=== PATIENT | female | born 1975 | race American Indian/Alaskan Native ===

== ENCOUNTER 2016-04-29 13:03 | Outpatient (CLI) | payer MEDICARE | END 2016-04-29 13:04 | disposition home or self-care (01) | LOC: CARD 13:03 | DX: H43.12 Vitreous hemorrhage, left eye (principal) | CPT/HCPCS: 93005; 93010 ==

== ENCOUNTER 2017-07-30 09:43 | Inpatient (IN) | payer MEDICARE ==
[2017-07-30] MEDS ORDERED: ASPIRIN PO ONE (10:11)
[2017-07-30] MEDS ORDERED: MORPHINE IV ONE (10:32)
--- NOTE | 2017-07-30 10:33 | Emergency Department Report ---
ED Chest Pain HPI - General Chief Complaint: Chest Pain Stated Complaint: CHEST PAIN Time Seen by Provider: 07/30/17 10:10 Source: patient, EMS Mode of arrival: Stretcher Limitations: No Limitations - History of Present Illness Initial Comments: Is a 42-year-old female presents to emergency room with complaints of chest pain 1 hour. Patient states chest pain is a center of her chest radiating to the left part of her chest. Patient states pain is a 3 out of 10. Patient states unchanged with rest and worse with exertion. Patient states she was given nitroglycerin in route by EMS. Patient describes the pain as a pressure and dull pain. Patient states she was having her dialysis done at approximately 2.5 hours into her dialysis treatment she developed chest pain. Patient states she missed dialysis on Wednesday. Patient denies shortness of breath. Patient denies fever and chills. Patient denies recent URI symptoms. Patient denies leg pain. He denies nausea and vomiting and diaphoresis. Patient has multiple comorbidities MD Complaint: chest pain -: Sudden Onset: during rest Pain Location: substernal, left chest Pain Radiation: other (pain radiates from the center of her chest to her left chest) Severity scale (0 -10): 3 Quality: tightness, aching, pressure Consistency: constant Improves With: nothing Worsens With: exertion, movement re: denies: nausea, vomting, diaphoresis, dyspnea, sense of impending doom Other Symptoms: denies: cough, fever, syncope, rash, acid taste in mouth, leg swelling, palpitations, burping Treatments Prior to Arrival: nitroglycerin Aspirin use within the Past 7 Days: (0) No - Related Data On Oral Contraceptives: No Home Medications Medication Instructions Recorded Confirmed Last Taken Clonidine HCl [Catapres] 0.3 mg PO TID 11/28/14 07/30/17 07/28/16 Carvedilol [Coreg] 25 mg PO BID 02/13/15 07/30/17 07/28/16 Furosemide [Lasix TAB] 80 mg PO BID 02/13/15 07/30/17 07/28/16 NIFEdipine XL [Procardia Xl] 60 mg PO Q12HR 02/13/15 07/30/17 07/28/16 B Complex 11/Folic/C/Biot/Zinc 1 each PO DAILY 07/29/16 07/30/17 07/28/16 [Dialyvite with Zinc Tablet] Insulin Detemir [Levemir Flextouch] 20 unit SQ DAILY 07/29/16 07/30/17 07/28/16 Omeprazole Magnesium [PriLOSEC Otc] 20 mg PO QDAY 07/29/16 07/30/17 07/28/16 Calcium Acetate [Phoslo] 2,001 mg PO TID 07/30/17 07/30/17 Unknown Ergocalciferol [Vitamin D2] 1 cap PO QWEEK 07/30/17 07/30/17 Unknown Ferric Citrate (Nf) [Auryxia (Nf)] 210 mg PO AC 07/30/17 07/30/17 Unknown Gabapentin [Neurontin] 100 mg PO PRN 07/30/17 07/30/17 Unknown Zolpidem [Ambien] 5 mg PO QHS PRN 07/30/17 07/30/17 Unknown Allergies Allergy/AdvReac Type Severity Reaction Status Date / Time lisinopril Allergy Swelling Verified 11/09/15 08:48 heparin AdvReac EYE Verified 07/30/17 15:24 FOGGING/ EYE BLEEDING Heart Score - HEART Score History: Slightly suspicious EKG: Normal Age: < 45 Risk factors: > 3 risk factors or hx of atherosclerotic disease Troponin: > 3x normal limit HEART Score: 4 ED Review of Systems ROS: Stated complaint: CHEST PAIN Other details as noted in HPI Constitutional: denies: chills, fever Eyes: denies: eye pain, eye discharge, vision change ENT: denies: ear pain, throat pain Respiratory: denies: cough, shortness of breath, wheezing Cardiovascular: chest pain. denies: palpitations Endocrine: no symptoms reported Gastrointestinal: denies: abdominal pain, nausea, diarrhea Genitourinary: denies: urgency, dysuria, discharge Musculoskeletal: denies: back pain, joint swelling, arthralgia Skin: denies: rash, lesions Neurological: denies: headache, weakness, paresthesias Psychiatric: denies: anxiety, depression Hematological/Lymphatic: denies: easy bleeding, easy bruising ED Past Medical Hx - Past Medical History Previous Medical History?: Yes Hx Hypertension: Yes Hx CVA: Yes (TIA) Hx Heart Attack/AMI: No Hx Congestive Heart Failure: Yes ([facility] DIASTOLIC HEART FAILURE) Hx Diabetes: Yes (IDDM 2014) Hx Deep Vein Thrombosis: No Hx Pulmonary Embolism: No Hx GERD: No Hx Liver Disease: No Hx Renal Disease: Yes (MWF dialysis) Hx Sickle Cell Disease: No Hx Arthritis: No Hx Headaches / Migraines: No Hx Seizures: No Hx Kidney Stones: No Hx Asthma: No Hx COPD: No Hx Tuberculosis: No Hx Dementia: No Hx HIV: No - Surgical History Past Surgical History?: Yes Hx Coronary Stent: No Hx Open Heart Surgery: No Hx Pacemaker: No Hx Internal Defibrillator: No Hx Cholecystectomy: No Hx Appendectomy: No Hx Breast Surgery: No Additional Surgical History: Left subclavian hemodialysis access. Fistula placement right arm - Family History Family history: hypertension - Social History Smoking Status: Never Smoker Substance Use Type: None - Medications Home Medications: Home Medications Medication Instructions Recorded Confirmed Last Taken Type Clonidine HCl [Catapres] 0.3 mg PO TID 11/28/14 07/30/17 07/28/16 History Carvedilol [Coreg] 25 mg PO BID 02/13/15 07/30/17 07/28/16 History Furosemide [Lasix TAB] 80 mg PO BID 02/13/15 07/30/17 07/28/16 History NIFEdipine XL [Procardia Xl] 60 mg PO Q12HR 02/13/15 07/30/17 07/28/16 History B Complex 11/Folic/C/Biot/Zinc 1 each PO DAILY 07/29/16 07/30/17 07/28/16 History [Dialyvite with Zinc Tablet] Insulin Detemir [Levemir Flextouch] 20 unit SQ DAILY 07/29/16 07/30/17 07/28/16 History Omeprazole Magnesium [PriLOSEC Otc] 20 mg PO QDAY 07/29/16 07/30/17 07/28/16 History Calcium Acetate [Phoslo] 2,001 mg PO TID 07/30/17 07/30/17 Unknown History Ergocalciferol [Vitamin D2] 1 cap PO QWEEK 07/30/17 07/30/17 Unknown History Ferric Citrate (Nf) [Auryxia (Nf)] 210 mg PO AC 07/30/17 07/30/17 Unknown History Gabapentin [Neurontin] 100 mg PO PRN 07/30/17 07/30/17 Unknown History Zolpidem [Ambien] 5 mg PO QHS PRN 07/30/17 07/30/17 Unknown History ED Physical Exam - General Limitations: No Limitations General appearance: alert, in no apparent distress - Head Head exam: Present: atraumatic, normocephalic - Eye Eye exam: Present: normal appearance - ENT ENT exam: Present: mucous membranes moist - Neck Neck exam: Present: normal inspection - Respiratory Respiratory exam: Present: normal lung sounds bilaterally. Absent: respiratory distress - Cardiovascular Cardiovascular Exam: Present: regular rate, normal rhythm. Absent: systolic murmur, diastolic murmur, rubs, gallop - GI/Abdominal GI/Abdominal exam: Present: soft, normal bowel sounds - Extremities Exam Extremities exam: Present: normal inspection - Back Exam Back exam: Present: normal inspection - Neurological Exam Neurological exam: Present: alert, oriented X3 - Psychiatric Psychiatric exam: Present: normal affect, normal mood - Skin Skin exam: Present: warm, dry, intact, normal color. Absent: rash ED Course Vital Signs 07/30/17 07/30/17 07/30/17 09:51 10:08 10:13 Temperature 99.1 F 99.1 F Pulse Rate 77 76 77 Respiratory 19 16 15 Rate Blood Pressure 188/93 188/93 Blood Pressure 188/93 [Left] O2 Sat by Pulse 99 98 99 Oximetry 07/30/17 07/30/17 07/30/17 10:16 10:30 10:46 Temperature Pulse Rate 77 75 75 Respiratory 15 18 15 Rate Blood Pressure 188/93 188/93 188/93 Blood Pressure [Left] O2 Sat by Pulse 99 98 99 Oximetry 07/30/17 07/30/17 07/30/17 10:48 11:00 11:16 Temperature Pulse Rate 74 77 Respiratory 15 17 18 Rate Blood Pressure 197/88 197/88 Blood Pressure [Left] O2 Sat by Pulse 96 99 Oximetry 07/30/17 07/30/17 07/30/17 11:18 11:30 11:46 Temperature Pulse Rate 79 76 Respiratory 15 14 20 Rate Blood Pressure 197/88 197/88 Blood Pressure [Left] O2 Sat by Pulse 99 99 Oximetry 07/30/17 07/30/17 07/30/17 12:00 12:16 12:30 Temperature Pulse Rate 74 75 75 Respiratory 15 20 14 Rate Blood Pressure 196/95 196/95 196/95 Blood Pressure [Left] O2 Sat by Pulse 96 97 97 Oximetry 07/30/17 07/30/17 12:46 13:00 Temperature Pulse Rate 75 78 Respiratory 18 12 Rate Blood Pressure 196/95 197/96 Blood Pressure [Left] O2 Sat by Pulse 97 98 Oximetry - Reevaluation(s) Reevaluation #1: Discussed wound care with patient. Patient to be admitted to hospital and patient agrees. Dr. Strauss consulted for admission. Dr. Strauss to assume care of the patient. 07/30/17 11:29 YOAN score - Yoan Score Age > 65: (0) No Aspirin use within the Past 7 Days: (0) No 3 or more CAD Risk Factors: (1) Yes 2 or more Angina events in past 24 hrs: (1) Yes Known CAD with more than 50% Stenosis: (0) No Elevated Cardiac Markers: (1) Yes ST Deviation Greater than 0.5mm: (0) No YOAN Score: 3 ED Medical Decision Making - Lab Data Result diagrams: 07/30/17 12:15 07/30/17 12:15 - EKG Data -: EKG Interpreted by Ga EKG shows normal: sinus rhythm, axis, intervals, QRS complexes, ST-T waves Rate: normal - EKG Data Interpretation: LV[facility] - Medical Decision Making Patient is a 42-year-old female presents emergency room with chest pain. Patient found to have elevated troponins. Patient admitted to the hospitalist service for further evaluation and treatment. Hypertension discussed with hospitalist. hospitalists to assume care at time of consultation - Differential Diagnosis chest pain. ACS. Electrolyte imbalance. ckd Critical Care Time: Yes Critical care attestation.: If time is entered above; I have spent that time in minutes in the direct care of this critically ill patient, excluding procedure time. Critical Care Time: 35 minutes for critical care time ED Disposition Clinical Impression: ESRD needing dialysis, Type 2 diabetes mellitus, Elevated troponin I level Chest pain Qualifiers: Chest pain type: unspecified Qualified Code(s): R07.9 - Chest pain, unspecified HTN (hypertension) Qualifiers: Hypertension type: essential hypertension Qualified Code(s): I10 - Essential ( primary) hypertension Disposition: OP ADMIT IP TO THIS HOSP Is pt being admited?: Yes Does the pt Need Aspirin: No Condition: Critical Time of Disposition: 11:29
[2017-07-30 10:34] LABS: Mean Corpuscular HGB Conc 30 % (30-34); Mean Corpuscular Volume 76 fl (79-97); Platelet Count 180 K/mm3 (140-440); Red Cell Distribution Width 14.8 % (13.2-15.2)
[2017-07-30 10:44] LABS: Hematocrit 39.6 % (30.3-42.9); Mean Corpuscular Hemoglobin 23 pg (28-32)
[2017-07-30 10:48] LABS: Calcium 8.7 mg/dL (8.4-10.2)
[2017-07-30 11:17] LABS: Anisocytosis 1+; Hypochromasia 1+; Total Cells Counted 100
[2017-07-30 11:18] LABS: Platelet Estimate Cons
[2017-07-30 11:22] LABS: Chol/HDL Ratio 3.95 %
--- NOTE | 2017-07-30 11:52 | History and Physical Report ---
History of Present Illness Chief complaint: I missed dialysis, and my chest hurts History of present illness: 42 YO Female with ESRD on HD(M,W,F), HTN, DM, Diastolic CHF presents to ED for evaluation. Pt states that she was last dialyzed on Wednesday and was undergoing her scheduled dialysis today. Pt was approximately 2.5 hours inter her session when she developed acute onset chest pain. Pt dialysis session was terminated early. EMS was notified, and upon arrival the patient was found to have chest pain. Pt treated with Nitro, and was transported to [facility] for further care and evaluaton. Pt states that she has experienced pain in her chest for the past 1 hour. Pt states that pain is 3/10, substernal, radiates to her left arm, aching , and crushing in nature, worsened with exertion, not relieved with rest. Pt denies shortness of breath, fever, chills, trauma, BRBPR, unilateral leg swelling, calf pain, prolonged immobility/travel, individual/family history of DVT/PE, productive cough, or recent ill contacts. Pt seen and evaluated in ED and found to have symptoms consistent with ACS. Pt admitted to telemetry, Cardiology consulted in ED. Past History Past Medical History: diabetes, ESRD, heart failure, hypertension Past Surgical History: Other (AV Fistula) Social history: single. denies: smoking, alcohol abuse, prescription drug abuse Family history: diabetes, hypertension Medications and Allergies Allergies Allergy/AdvReac Type Severity Reaction Status Date / Time lisinopril Allergy Swelling Verified 07/30/17 22:39 heparin AdvReac EYE Verified 07/30/17 22:39 FOGGING/ EYE BLEEDING Home Medications Medication Instructions Recorded Confirmed Last Taken Type Clonidine HCl [Catapres] 0.3 mg PO TID 11/28/14 07/30/17 07/30/17 History Carvedilol [Coreg] 25 mg PO BID 02/13/15 07/30/17 07/30/17 History NIFEdipine XL [Procardia Xl] 60 mg PO Q12HR 02/13/15 07/30/17 07/30/17 History Insulin Detemir [Levemir Flextouch] 20 unit SQ DAILY 07/29/16 07/30/17 07/30/17 History Omeprazole Magnesium [PriLOSEC Otc] 20 mg PO QDAY 07/29/16 07/30/17 07/30/17 History Calcium Acetate [Phoslo] 2,001 mg PO TID 07/30/17 07/30/17 07/30/17 History Ergocalciferol [Vitamin D2] 1 cap PO QWEEK 07/30/17 07/30/17 07/30/17 History Ferric Citrate (Nf) [Auryxia (Nf)] 210 mg PO AC 07/30/17 07/30/17 07/30/17 History Gabapentin [Neurontin] 100 mg PO PRN 07/30/17 07/30/17 07/30/17 History Zolpidem [Ambien] 5 mg PO QHS PRN 07/30/17 07/30/17 07/30/17 History Review of Systems Constitutional: no weight loss, no weight gain, no fever, no chills Ears, nose, mouth and throat: no ear pain, no ear discharge, no tinnitis, no decreased hearing, no nasal congestion, no sinus pressure Breasts: no change in shape, no swelling, no mass Cardiovascular: chest pain, no orthopnea, no palpitations, no rapid/irregular heart beat, no edema Respiratory: no cough, no cough with sputum, no excessive sputum, no hemoptysis , no shortness of breath Gastrointestinal: no nausea, no vomiting, no diarrhea Genitourinary Female: no dysmenorrhea, no pelvic pain, no flank pain, no menorrhagia, no urinary frequency, no urgency Rectal: no pain, no incontinence, no bleeding Musculoskeletal: no neck stiffness, no neck pain, no shooting arm pain, no arm numbness/tingling, no low back pain, no shooting leg pain Integumentary: no rash, no pruritis, no redness, no sores, no wounds Neurological: no paralysis, no weakness, no parathesias, no numbness, no tingling, no seizures Psychiatric: no anxiety, no memory loss, no change in sleep habits, no sleep disturbances, no insomnia, no hypersomnia Endocrine: no polyphagia, no excessive thirst, no polydipsia, no polyuria, no nocturia Hematologic/Lymphatic: no easy bruising, no lymphadenopathy, no lymphedema Allergic/Immunologic: no urticaria, no allergic rhinitis, no wheezing, no persistent infections, no anaphylaxis, no angioedema Exam - Constitutional Vitals: Temp Pulse Resp BP Pulse Ox 99.1 F 77 15 188/93 99 07/30/17 10:13 07/30/17 10:16 07/30/17 11:18 07/30/17 10:16 07/30/17 10:16 General appearance: Present: mild distress - EENT Eyes: Present: PERRL ENT: hearing intact, clear oral mucosa - Neck Neck: Present: supple, normal ROM - Respiratory Respiratory effort: normal Respiratory: bilateral: CTA - Cardiovascular Heart Sounds: Present: S1 & S2. Absent: rub, click - Extremities Extremities: pulses symmetrical, No edema Peripheral Pulses: within normal limits - Abdominal General gastrointestinal: Present: soft, non-tender, non-distended, normal bowel sounds Female genitourinary: Present: normal - Integumentary Integumentary: Present: clear, warm, dry - Musculoskeletal Musculoskeletal: gait normal, strength equal bilaterally - Psychiatric Psychiatric: appropriate mood/affect, intact judgment & insight - Neurologic Neurologic: CNII-XII intact, moves all extremities Results - Labs CBC & Chem 7: 07/30/17 12:15 07/30/17 12:15 Labs: Abnormal lab results 07/30/17 07/30/17 Range/Units 10:15 10:15 RBC 5.20 H (3.65-5.03) M/mm3 MCV 76 L (79-97) fl MCH 23 L (28-32) pg Seg Neuts % (Manual) 82.0 H (40.0-70.0) % Lymphocytes % (Manual) 9.0 L (13.4-35.0) % Eosinophils % (Manual) 5.0 H (0.0-4.3) % Basophils % (Manual) 2.0 H (0.0-1.8) % Lymphocytes # (Manual) 0.8 L (1.2-5.4) K/mm3 Eosinophils # (Manual) 0.5 H (0.0-0.4) K/mm3 Basophils # (Manual) 0.2 H (0.0-0.1) K/mm3 BUN 49 H (7-17) mg/dL Creatinine 5.5 H (0.7-1.2) mg/dL Glucose 149 H (65-100) mg/dL Troponin T 0.389 H* (0.00-0.029) ng/mL Assessment and Plan - Patient Problems (1) ACS (acute coronary syndrome) Current Visit: Yes Status: Acute Plan to address problem: Admit to telemetry, serial cardiac enzymes, ekg, stress test, echo, cardiology consulted, morphine supplemental oxygen, nitro, aspirin (2) Diastolic CHF Current Visit: Yes Status: Acute Qualifiers: Heart failure chronicity: acute on chronic Qualified Code(s): I50.33 - Acute on chronic diastolic (congestive) heart failure Plan to address problem: Strict I/O, Daily weight, Echo, cardiology consulted, monitor uop q shift, afterload reduction (3) HTN (hypertension) Current Visit: Yes Status: Chronic Qualifiers: Hypertension type: essential hypertension Qualified Code(s): I10 - Essential (primary) hypertension Plan to address problem: monitor bp q shift, (4) Diabetes Current Visit: Yes Status: Acute Plan to address problem: ADA diet, insulin, accu check (5) End-stage renal disease on hemodialysis Current Visit: No Status: Acute Plan to address problem: Nephrology team consulted in ED as per ED physician, dialysis as per renal team , monitor uop q shift, monitor fluid balance. (6) DVT prophylaxis Current Visit: Yes Status: Acute Plan to address problem: acd to ble while in bed
[2017-07-30] MEDS ORDERED: TYLENOL PO PRN (11:58)
[2017-07-30] MEDS ORDERED: NITROSTAT SL PRN (11:58)
[2017-07-30] MEDS ORDERED: SODIUM CHLORIDE FLUSH SYRINGE 10 ML IV PRN ×2 (11:58)
[2017-07-30] MEDS ORDERED: PROVENTIL IH PRN (11:58)
[2017-07-30] MEDS ORDERED: ZOFRAN IV PRN (11:58)
[2017-07-30] MEDS ORDERED: BABY ASPIRIN PO STA (12:04)
[2017-07-30 12:28] LABS: Basophils # (Auto) 0.1 K/mm3 (0.0-0.1); Basophils % (Auto) 0.9 % (0.0-1.8); Eosinophils # (Auto) 0.2 K/mm3 (0.0-0.4); Eosinophils % (Auto) 2.1 % (0.0-4.3); Lymphocytes # (Auto) 1.3 K/mm3 (1.2-5.4); Lymphocytes % (Auto) 15.5 % (13.4-35.0); Mean Corpuscular HGB Conc 31 % (30-34); Mean Corpuscular Volume 76 fl (79-97); Monocytes # (Auto) 0.5 K/mm3 (0.0-0.8); Monocytes % (Auto) 5.3 % (0.0-7.3); Platelet Count 186 K/mm3 (140-440); Red Blood Count 5.26 M/mm3 (3.65-5.03); Red Cell Distribution Width 15.3 % (13.2-15.2)
[2017-07-30 12:29] LABS: Hematocrit 39.7 % (30.3-42.9); Hemoglobin 12.1 gm/dl (10.1-14.3); Mean Corpuscular Hemoglobin 23 pg (28-32)
[2017-07-30 12:38] LABS: Calcium 8.6 mg/dL (8.4-10.2)
--- NOTE | 2017-07-30 13:46 | Cat Scan Report ---
CT CHEST WITHOUT CONTRAST: HISTORY: chest pain. COMPARISON: none. TECHNIQUE: Helical CT in 1.25mm intervals without IV contrast. Sagittal and coronal reformatted images. FINDINGS: Thyroid gland: There are multiple bilateral hypodense thyroid nodules. Tracheobronchial tree: Normal. Esophagus: Normal. Heart: The heart is normal size. Moderate three-vessel coronary artery calcifications are noted. Pericardium: Normal. Mediastinum: Normal. Lung Fischer: Normal. Pleural Spaces: Normal. Musculoskeletal: Intact. IMPRESSION: No acute cardiopulmonary process is identified. Probable multinodular goiter.
[2017-07-30] MEDS: PROCARDIA XL PO SCH (22:48)
[2017-07-30] MEDS: SODIUM CHLORIDE FLUSH SYRINGE 10 ML IV SCH (22:48)
[2017-07-31] MEDS ORDERED: AMBIEN PO PRN (00:15)
[2017-07-31] MEDS ORDERED: PROCARDIA XL PO SCH (01:00)
[2017-07-31] MEDS ORDERED: NEURONTIN PO SCH (01:00)
[2017-07-31] MEDS: HumaLOG SUB-Q SCH ×4 (01:02→21:56)
[2017-07-31] MEDS: COREG PO SCH ×3 (01:02→21:47)
[2017-07-31] MEDS ORDERED: HumaLOG SUB-Q SCH (07:30)
[2017-07-31] MEDS ORDERED: NON-FORMULARY (Ferric Citrate 210 MG) PO SCH (07:30)
--- NOTE | 2017-07-31 08:27 | Progress Note ---
Assessment and Plan Assessment and plan: 42 YO Female with ESRD on HD(M,W,F), HTN, DM, Diastolic CHF presents to ED for evaluation. Pt states that she was last dialyzed on Wednesday and was undergoing her scheduled dialysis today. Pt was approximately 2.5 hours inter her session when she developed acute onset chest pain. Pt dialysis session was terminated early. EMS was notified, and upon arrival the patient was found to have chest pain. Pt treated with Nitro, and was transported to [facility] for further care and evaluaton. Pt states that she has experienced pain in her chest for the past 1 hour. Pt states that pain is 3/10, substernal, radiates to her left arm, aching , and crushing in nature, worsened with exertion, not relieved with rest. Pt denies shortness of breath, fever, chills, trauma, BRBPR, unilateral leg swelling, calf pain, prolonged immobility/travel, individual/family history of DVT/PE, productive cough, or recent ill contacts. Pt seen and evaluated in ED and found to have symptoms consistent with ACS. Atypical chest pain Type 2 [place] ESRD Acute on Chronic Diastolic Heart failure HTN DM Multinoduar goiter Plan Cardiology consult. Patient with noted chronically elevated Troponin Nephrology consult for Dialsysis. Pat missed dialysis and Had chest pain during the last episode with shortened duration Outpatient Thyroid work up pain control, ?if patient will benefit from Ranexa. Continue ASA AND CCB Continue tele for now ADA diet, insulin and accu check DVT/GI prophy Plan of care discussed with patient. History Interval history: Patient seen and examined in no acute distress. Resting comfortable, in no acute distress. Hospitalist Physical - Physical exam Narrative exam: VITAL SIGNS: Reviewed. GENERAL: The patient appeared well nourished and normally developed. Vital signs as documented. HEAD: No signs of head trauma. EYES: Pupils are equal. Extraocular motions intact. EARS: Hearing grossly intact. MOUTH: Oropharynx is normal. NECK: No adenopathy, no JVD. CHEST: Chest with clear breath sounds bilaterally. No wheezes, rales, or rhonchi. CARDIAC: Regular rate and rhythm. S1 and S2, without murmurs, gallops, or rubs. VASCULAR: No Edema. Peripheral pulses normal and equal in all extremities. ABDOMEN: Soft, without detectable tenderness. No sign of distention. No rebound or guarding, and no masses palpated. Bowel Sounds normal. MUSCULOSKELETAL: Good range of motion of all major joints. Extremities without clubbing, cyanosis or edema. NEUROLOGIC EXAM: Alert and oriented x 3. No focal sensory or strength deficits. Speech normal. Follows commands. PSYCHIATRIC: Mood normal. SKIN: No rash or lesions. - Constitutional Vitals: Temp Pulse Resp BP Pulse Ox 98.5 F 51 L 16 138/68 90 07/31/17 07:58 07/31/17 07:58 07/31/17 07:58 07/31/17 07:58 07/31/17 07:58 General appearance: Present: mild distress Results - Labs CBC & Chem 7: 07/30/17 12:15 07/30/17 12:15 Labs: Laboratory Last Values WBC 8.7 K/mm3 (4.5-11.0) 07/30/17 12:15 RBC 5.26 M/mm3 (3.65-5.03) H 07/30/17 12:15 Hgb 12.1 gm/dl (10.1-14.3) 07/30/17 12:15 Hct 39.7 % (30.3-42.9) 07/30/17 12:15 MCV 76 fl (79-97) L 07/30/17 12:15 MCH 23 pg (28-32) L 07/30/17 12:15 MCHC 31 % (30-34) 07/30/17 12:15 RDW 15.3 % (13.2-15.2) H 07/30/17 12:15 Plt Count 186 K/mm3 (140-440) 07/30/17 12:15 Lymph % (Auto) 15.5 % (13.4-35.0) 07/30/17 12:15 [place] % (Auto) 5.3 % (0.0-7.3) 07/30/17 12:15 Eos % (Auto) 2.1 % (0.0-4.3) 07/30/17 12:15 Baso % (Auto) 0.9 % (0.0-1.8) 07/30/17 12:15 Lymph # 1.3 K/mm3 (1.2-5.4) 07/30/17 12:15 [place] # 0.5 K/mm3 (0.0-0.8) 07/30/17 12:15 Eos # 0.2 K/mm3 (0.0-0.4) 07/30/17 12:15 Baso # 0.1 K/mm3 (0.0-0.1) 07/30/17 12:15 Add Manual Diff Complete 07/30/17 10:15 Total Counted 100 07/30/17 10:15 Seg Neutrophils % 76.2 % (40.0-70.0) H 07/30/17 12:15 Seg Neuts % (Manual) 82.0 % (40.0-70.0) H 07/30/17 10:15 Band Neutrophils % 0 % 07/30/17 10:15 Lymphocytes % (Manual) 9.0 % (13.4-35.0) L 07/30/17 10:15 Reactive Lymphs % (Man) 0 % 07/30/17 10:15 Monocytes % (Manual) 2.0 % (0.0-7.3) 07/30/17 10:15 Eosinophils % (Manual) 5.0 % (0.0-4.3) H 07/30/17 10:15 Basophils % (Manual) 2.0 % (0.0-1.8) H 07/30/17 10:15 Metamyelocytes % 0 % 07/30/17 10:15 Myelocytes % 0 % 07/30/17 10:15 Promyelocytes % 0 % 07/30/17 10:15 Blast Cells % 0 % 07/30/17 10:15 Nucleated RBC % Not Reportable 07/30/17 10:15 Seg Neutrophils # 6.6 K/mm3 (1.8-7.7) 07/30/17 12:15 Seg Neutrophils # Man 7.4 K/mm3 (1.8-7.7) 07/30/17 10:15 Band Neutrophils # 0.0 K/mm3 07/30/17 10:15 Lymphocytes # (Manual) 0.8 K/mm3 (1.2-5.4) L 07/30/17 10:15 Abs React Lymphs (Man) 0.0 K/mm3 07/30/17 10:15 Monocytes # (Manual) 0.2 K/mm3 (0.0-0.8) 07/30/17 10:15 Eosinophils # (Manual) 0.5 K/mm3 (0.0-0.4) H 07/30/17 10:15 Basophils # (Manual) 0.2 K/mm3 (0.0-0.1) H 07/30/17 10:15 Metamyelocytes # 0.0 K/mm3 07/30/17 10:15 Myelocytes # 0.0 K/mm3 07/30/17 10:15 Promyelocytes # 0.0 K/mm3 07/30/17 10:15 Blast Cells # 0.0 K/mm3 07/30/17 10:15 WBC Morphology Not Reportable 07/30/17 10:15 Hypersegmented Neuts Not Reportable 07/30/17 10:15 Hyposegmented Neuts Not Reportable 07/30/17 10:15 Hypogranular Neuts Not Reportable 07/30/17 10:15 Smudge Cells Not Reportable 07/30/17 10:15 Toxic Granulation Not Reportable 07/30/17 10:15 Toxic Vacuolation Not Reportable 07/30/17 10:15 Dohle Bodies Not Reportable 07/30/17 10:15 Pelger-Huet Anomaly Not Reportable 07/30/17 10:15 Zach Rods Not Reportable 07/30/17 10:15 Platelet Estimate Cons 07/30/17 10:15 Clumped Platelets Not Reportable 07/30/17 10:15 Plt Clumps, EDTA Not Reportable 07/30/17 10:15 Large Platelets Not Reportable 07/30/17 10:15 Giant Platelets Not Reportable 07/30/17 10:15 Platelet Satelliting Not Reportable 07/30/17 10:15 Plt Morphology Comment Not Reportable 07/30/17 10:15 RBC Morphology Not Reportable 07/30/17 10:15 Dimorphic RBCs Not Reportable 07/30/17 10:15 Polychromasia Not Reportable 07/30/17 10:15 Hypochromasia 1+ 07/30/17 10:15 Poikilocytosis Not Reportable 07/30/17 10:15 Anisocytosis 1+ 07/30/17 10:15 Microcytosis Not Reportable 07/30/17 10:15 Macrocytosis Not Reportable 07/30/17 10:15 Spherocytes Not Reportable 07/30/17 10:15 Pappenheimer Bodies Not Reportable 07/30/17 10:15 Sickle Cells Not Reportable 07/30/17 10:15 Target Cells Not Reportable 07/30/17 10:15 Tear Drop Cells Not Reportable 07/30/17 10:15 Ovalocytes Not Reportable 07/30/17 10:15 Helmet Cells Not Reportable 07/30/17 10:15 [place] Bodies Not Reportable 07/30/17 10:15 [place] Rings Not Reportable 07/30/17 10:15 [place] Cells Not Reportable 07/30/17 10:15 Bite Cells Not Reportable 07/30/17 10:15 Crenated Cell Not Reportable 07/30/17 10:15 Elliptocytes Not Reportable 07/30/17 10:15 Acanthocytes (Spur) Not Reportable 07/30/17 10:15 Rouleaux Not Reportable 07/30/17 10:15 Hemoglobin C Crystals Not Reportable 07/30/17 10:15 Schistocytes Not Reportable 07/30/17 10:15 Malaria parasites Not Reportable 07/30/17 10:15 John Bodies Not Reportable 07/30/17 10:15 Hem Pathologist Commnt No 07/30/17 10:15 Sodium 135 mmol/L (137-145) L 07/30/17 12:15 Potassium 4.5 mmol/L (3.6-5.0) 07/30/17 12:15 Chloride 99.0 mmol/L (98-107) 07/30/17 12:15 Carbon Dioxide 21 mmol/L (22-30) L 07/30/17 12:15 Anion Gap 20 mmol/L 07/30/17 12:15 BUN 47 mg/dL (7-17) H 07/30/17 12:15 Creatinine 5.6 mg/dL (0.7-1.2) H 07/30/17 12:15 Estimated GFR 10 ml/min 07/30/17 12:15 BUN/Creatinine Ratio 8 % 07/30/17 12:15 Glucose 148 mg/dL (65-100) H 07/30/17 12:15 POC Glucose 123 (70-105) H 07/31/17 07:48 Calcium 8.6 mg/dL (8.4-10.2) 07/30/17 12:15 Troponin T 0.418 ng/mL (0.00-0.029) H* 07/30/17 15:10 Triglycerides 102 mg/dL (2-149) 07/30/17 10:15 Cholesterol 162 mg/dL (50-199) 07/30/17 10:15 LDL Cholesterol Direct 106 mg/dL (50-130) 07/30/17 10:15 HDL Cholesterol 41 mg/dL (40-59) 07/30/17 10:15 Cholesterol/HDL Ratio 3.95 % 07/30/17 10:15
[2017-07-31] MEDS ORDERED: INSULIN DETEMIR 20 UNIT SQ SCH (10:00)
[2017-07-31] MEDS ORDERED: NON-FORMULARY (Omeprazole Magnesium [Prilosec Otc] 20 MG) PO SCH (10:00)
--- NOTE | 2017-07-31 11:03 | Consultation ---
History of Present Illness - Reason for Consult Consult date: 07/31/17 end stage renal disease - History of Present Illness Mrs. Story is a 42yo with ESRD on HD MWF who presented to the ED with chest pain. She reports that chest "tightness" began during dialysis treatment. Treatment was terminated and patient was sent to the ED for evaluation. Mrs. Story reports pain resolved after morphine and has not recurred. She denies associated symptoms - diaphoresis, nausea, vomiting. She reports breathing was more labored. At present, Mrs. Story has no complaints. Past History Past Medical History: diabetes, ESRD, heart failure, hypertension Past Surgical History: Other (AV Fistula) Social history: single. denies: smoking, alcohol abuse, prescription drug abuse Family history: diabetes, hypertension Medications and Allergies Allergies Allergy/AdvReac Type Severity Reaction Status Date / Time lisinopril Allergy Swelling Verified 07/30/17 22:39 heparin AdvReac EYE Verified 07/30/17 22:39 FOGGING/ EYE BLEEDING Home Medications Medication Instructions Recorded Confirmed Last Taken Type Clonidine HCl [Catapres] 0.3 mg PO TID 11/28/14 07/30/17 07/30/17 History Carvedilol [Coreg] 25 mg PO BID 02/13/15 07/30/17 07/30/17 History NIFEdipine XL [Procardia Xl] 60 mg PO Q12HR 02/13/15 07/30/17 07/30/17 History Insulin Detemir [Levemir Flextouch] 20 unit SQ DAILY 07/29/16 07/30/17 07/30/17 History Omeprazole Magnesium [PriLOSEC Otc] 20 mg PO QDAY 07/29/16 07/30/17 07/30/17 History Calcium Acetate [Phoslo] 2,001 mg PO TID 07/30/17 07/30/17 07/30/17 History Ergocalciferol [Vitamin D2] 1 cap PO QWEEK 07/30/17 07/30/17 07/30/17 History Ferric Citrate (Nf) [Auryxia (Nf)] 210 mg PO AC 07/30/17 07/30/17 07/30/17 History Gabapentin [Neurontin] 100 mg PO PRN 07/30/17 07/30/17 07/30/17 History Zolpidem [Ambien] 5 mg PO QHS PRN 07/30/17 07/30/17 07/30/17 History Active Meds: Active Medications Acetaminophen (Tylenol) 650 mg PO Q4H PRN PRN Reason: Pain MILD(1-3)/Fever >100.5/[facility] Albuterol (Proventil) 2.5 mg IH Q4HRT PRN PRN Reason: Shortness Of Breath Calcium Acetate (Phoslo) 2,001 mg PO TID [facility] Carvedilol (Coreg) 25 mg PO BID [facility] Last Admin: 07/31/17 01:02 Dose: 25 mg Clonidine HCl (Catapres) 0.3 mg PO TID [facility] Gabapentin (Neurontin) 100 mg PO PRN [facility] Insulin Glargine (Lantus) 20 units SUB-Q QDAY [facility] Insulin Human Lispro (Humalog) 0 unit SUB-Q ACHS [facility]; Protocol Last Admin: 07/31/17 08:08 Dose: Not Given Miscellaneous Medication (Ferric Citrate) 210 mg PO [facility] Nifedipine (Procardia Xl) 60 mg PO Q12HR [facility] Last Admin: 07/30/17 22:48 Dose: 60 mg Nitroglycerin (Nitrostat) 0.4 mg SL Q5M PRN PRN Reason: Chest Pain Ondansetron HCl (Zofran) 4 mg IV Q8H PRN PRN Reason: Nausea And Vomiting Pantoprazole Sodium (Protonix) 20 mg PO QDAY [facility] Sodium Chloride (Sodium Chloride Flush Syringe 10 Ml) 10 ml IV BID [facility] Last Admin: 07/30/17 22:48 Dose: 10 ml Sodium Chloride (Sodium Chloride Flush Syringe 10 Ml) 10 ml IV PRN PRN PRN Reason: LINE FLUSH Zolpidem Tartrate (Ambien) 5 mg PO QHS PRN PRN Reason: Sleep Review of Systems All systems: negative Exam - Vital Signs Vital signs: Vital Signs Temp Pulse Resp BP Pulse Ox 99.1 F 77 19 188/93 99 07/30/17 09:51 07/30/17 09:51 07/30/17 09:51 07/30/17 09:51 07/30/17 09:51 - General Appearance General appearance: well-developed, well-nourished, other (appears comfortable) EENT: ATNC Neck: Present: neck supple Respiratory: Clear to Ascultation Heart: regular, S1S2 Gastrointestinal: Present: normal. Absent: tenderness, distended Integumentary: no rash, warm and dry Neurologic: no focal deficit, alert and oriented x3 Musculoskeletal: Present: other (no edema) Psychiatric: cooperative Results - Lab Results 07/30/17 12:15 07/30/17 12:15 Most recent lab results Calcium 8.6 mg/dL (8.4-10.2) 07/30/17 12:15 Assessment and Plan Impression: * End stage renal disease on HD (outpatient schedule MWF) * Chest pain * Elevated troponin * Hypertension * Type II DM * Anemia secondary to ESRD * Secondary hyperparathyroidism Plan * Hemodialysis today as patient did not complete dialysis yesterday * Resume MWF schedule next week * UF as tolerated * Cardiology following * Continue antiHTN medications * Glycemic control per primary team * Renal diet * Epogen TIW prn
[2017-07-31] MEDS ORDERED: NACL 0.9% 100 ML IV PRN (11:04)
--- NOTE | 2017-07-31 11:37 | Consultation ---
History of Present Illness Consult date: 07/31/17 Consult reason: abnormal cardiac enzymes, chest pain Past History Past Medical History: diabetes, ESRD, heart failure, hypertension Past Surgical History: Other (AV Fistula) Social history: single. denies: smoking, alcohol abuse, prescription drug abuse Family history: diabetes, hypertension Medications and Allergies Allergies Allergy/AdvReac Type Severity Reaction Status Date / Time lisinopril Allergy Swelling Verified 07/30/17 22:39 heparin AdvReac EYE Verified 07/30/17 22:39 FOGGING/ EYE BLEEDING Home Medications Medication Instructions Recorded Confirmed Last Taken Type Clonidine HCl [Catapres] 0.3 mg PO TID 11/28/14 07/30/17 07/30/17 History Carvedilol [Coreg] 25 mg PO BID 02/13/15 07/30/17 07/30/17 History NIFEdipine XL [Procardia Xl] 60 mg PO Q12HR 02/13/15 07/30/17 07/30/17 History Insulin Detemir [Levemir Flextouch] 20 unit SQ DAILY 07/29/16 07/30/17 07/30/17 History Omeprazole Magnesium [PriLOSEC Otc] 20 mg PO QDAY 07/29/16 07/30/17 07/30/17 History Calcium Acetate [Phoslo] 2,001 mg PO TID 07/30/17 07/30/17 07/30/17 History Ergocalciferol [Vitamin D2] 1 cap PO QWEEK 07/30/17 07/30/17 07/30/17 History Ferric Citrate (Nf) [Auryxia (Nf)] 210 mg PO AC 07/30/17 07/30/17 07/30/17 History Gabapentin [Neurontin] 100 mg PO PRN 07/30/17 07/30/17 07/30/17 History Zolpidem [Ambien] 5 mg PO QHS PRN 07/30/17 07/30/17 07/30/17 History Active Meds: Active Medications Acetaminophen (Tylenol) 650 mg PO Q4H PRN PRN Reason: Pain MILD(1-3)/Fever >100.5/[facility] Albuterol (Proventil) 2.5 mg IH Q4HRT PRN PRN Reason: Shortness Of Breath Calcium Acetate (Phoslo) 2,001 mg PO TID [facility] Carvedilol (Coreg) 25 mg PO BID [facility] Last Admin: 07/31/17 01:02 Dose: 25 mg Clonidine HCl (Catapres) 0.3 mg PO TID [facility] Gabapentin (Neurontin) 100 mg PO PRN [facility] Sodium Chloride (Nacl 0.9%) 100 mls @ 999 mls/hr IV JOSE PRN PRN Reason: Hypotension Insulin Glargine (Lantus) 20 units SUB-Q QDAY [facility] Insulin Human Lispro (Humalog) 0 unit SUB-Q ACHS [facility]; Protocol Last Admin: 07/31/17 08:08 Dose: Not Given Miscellaneous Medication (Ferric Citrate) 210 mg PO AC [facility] Nifedipine (Procardia Xl) 60 mg PO Q12HR [facility] Last Admin: 07/30/17 22:48 Dose: 60 mg Nitroglycerin (Nitrostat) 0.4 mg SL Q5M PRN PRN Reason: Chest Pain Ondansetron HCl (Zofran) 4 mg IV Q8H PRN PRN Reason: Nausea And Vomiting Pantoprazole Sodium (Protonix) 20 mg PO QDAY [facility] Sodium Chloride (Sodium Chloride Flush Syringe 10 Ml) 10 ml IV BID [facility] Last Admin: 07/30/17 22:48 Dose: 10 ml Sodium Chloride (Sodium Chloride Flush Syringe 10 Ml) 10 ml IV PRN PRN PRN Reason: LINE FLUSH Zolpidem Tartrate (Ambien) 5 mg PO QHS PRN PRN Reason: Sleep Physical Examination Vital Signs Temp Pulse Resp BP Pulse Ox 99.1 F 77 19 188/93 99 07/30/17 09:51 07/30/17 09:51 07/30/17 09:51 07/30/17 09:51 07/30/17 09:51 Results 07/30/17 12:15 07/30/17 12:15 CBC 07/30/17 Range/Units 12:15 WBC 8.7 (4.5-11.0) K/mm3 RBC 5.26 H (3.65-5.03) M/mm3 Hgb 12.1 (10.1-14.3) gm/dl Hct 39.7 (30.3-42.9) % Plt Count 186 (140-440) K/mm3 Lymph # 1.3 (1.2-5.4) K/mm3 [place] # 0.5 (0.0-0.8) K/mm3 Eos # 0.2 (0.0-0.4) K/mm3 Baso # 0.1 (0.0-0.1) K/mm3 Comprehensive Metabolic Panel 07/30/17 Range/Units 12:15 Sodium 135 L (137-145) mmol/L Potassium 4.5 (3.6-5.0) mmol/L Chloride 99.0 (98-107) mmol/L Carbon Dioxide 21 L (22-30) mmol/L BUN 47 H (7-17) mg/dL Creatinine 5.6 H (0.7-1.2) mg/dL Glucose 148 H (65-100) mg/dL Calcium 8.6 (8.4-10.2) mg/dL Assessment and Plan Patient had transient chest pain during dialysis,improved with morphine,no recurrence.EKG's showed no acute changes,cardiac enzymes are elevated but not diagnostic of myocardial injury.Most likely related to underlying ESRD. Would continue risk factor modification and medical therapy.Will arrange for pharmacologic stress testing as OP.
[2017-07-31 14:18] LABS: Creatine Kinase MB 7.8 ng/mL (0.0-4.0)
[2017-07-31] MEDS: CATAPRES PO SCH ×3 (16:59→21:46)
[2017-07-31] MEDS: PHOSLO PO SCH ×3 (17:00→21:57)
[2017-07-31] MEDS: PROTONIX PO SCH (17:02)
[2017-07-31] MEDS: PROCARDIA XL PO SCH ×2 (17:02→21:47)
[2017-07-31] MEDS: LANTUS SUB-Q SCH ×2 (17:02→21:56)
[2017-07-31] MEDS: SODIUM CHLORIDE FLUSH SYRINGE 10 ML IV SCH (17:03)
[2017-08-01] MEDS: SODIUM CHLORIDE FLUSH SYRINGE 10 ML IV SCH ×2 (06:17→09:20)
--- NOTE | 2017-08-01 07:48 | Discharge Summary ---
Providers - Providers Date of Admission: 07/30/17 11:58 Attending physician: DEONTE LI MD 07/30/17 Consult to Cardiac Rehabilitation [CONS] Routine Reason For Exam: Phase I 07/31/17 08:24 Consult to Physician [CONS] Routine Comment: Consulting Provider: TIN BRANCH Physician Instructions: Reason For Exam: CHEST PAIN 07/31/17 08:26 Consult to Physician [CONS] Routine Comment: Consulting Provider: UZAIR JOSE Physician Instructions: Reason For Exam: ESRD Primary care physician: [employer]ICE MANAGER Hospitalization Condition: Stable Hospital course: 42 YO Female with ESRD on HD(M,W,F), HTN, DM, Diastolic CHF presents to ED for evaluation. Pt states that she was last dialyzed on Wednesday and was undergoing her scheduled dialysis today. Pt was approximately 2.5 hours inter her session when she developed acute onset chest pain. Pt dialysis session was terminated early. EMS was notified, and upon arrival the patient was found to have chest pain. Pt treated with Nitro, and was transported to [facility] for further care and evaluaton. Pt states that she has experienced pain in her chest for the past 1 hour. Pt states that pain is 3/10, substernal, radiates to her left arm, aching , and crushing in nature, worsened with exertion, not relieved with rest. Pt denies shortness of breath, fever, chills, trauma, BRBPR, unilateral leg swelling, calf pain, prolonged immobility/travel, individual/family history of DVT/PE, productive cough, or recent ill contacts. Pt seen and evaluated in ED and found to have symptoms consistent with ACS. Atypical chest pain Type 2 [place] ESRD Acute on Chronic Diastolic Heart failure HTN DM Multinoduar goiter Plan Cardiology consult. Patient with noted chronically elevated Troponin Nephrology consult for Dialsysis. Pat missed dialysis and Had chest pain during the last episode with shortened duration Outpatient Thyroid work up pain control, ?if patient will benefit from Ranexa. Continue ASA AND CCB Continue tele for now ADA diet, insulin and accu check DVT/GI prophy Plan of care discussed with patient. Disposition: DC-01 TO HOME OR SELFCARE Exam - Constitutional Vitals: Temp Pulse Resp BP Pulse Ox 98.2 F 71 18 110/56 97 08/01/17 04:39 08/01/17 04:39 08/01/17 04:39 08/01/17 04:39 08/01/17 04:39 Plan Activity: advance as tolerated, fall precautions Diet: low cholesterol, renal Special Instructions: record daily weights, record daily BP diary, record blood sugar diary Additional Instructions: STRESS TEST WITH CARDIOLOGY OUTPATIENT Follow up with: PRIMARY CARE, [Primary Care Provider] - 7 Days EDGARD WHITNEY MD [Staff Physician] - 7 Days ALISE IBANEZ MD [Staff Physician] - 7 Days Prescriptions: AtorvaSTATin [Lipitor] 40 mg PO QHS #30 tablet
[2017-08-01 08:03] VITALS: BP 97/50
[2017-08-01] MEDS: CATAPRES PO SCH (08:24)
--- NOTE | 2017-08-01 09:01 | Progress Note ---
Assessment and Plan Impression: * End stage renal disease on HD (outpatient schedule MWF) * Chest pain * Elevated troponin * Hypertension * Type II DM * Anemia secondary to ESRD * Secondary hyperparathyroidism Plan * Resume MWF schedule tomorrow * UF as tolerated * Cardiology following * Continue antiHTN medications * Glycemic control per primary team * Renal diet * Epogen TIW prn * Stable for d/c from a renal standpoint Subjective Date of service: 08/01/17 Interval history: Patient denies chest pain - no further episodes since presentation to the ED. She denies SOB. Objective - Vital Signs Vital signs: Vital Signs - 12hr 07/31/17 07/31/17 07/31/17 21:09 21:46 21:47 Temperature Pulse Rate Respiratory Rate Blood Pressure 90/53 90/53 90/53 Blood Pressure [Left] O2 Sat by Pulse Oximetry 07/31/17 07/31/17 08/01/17 21:55 22:00 00:12 Temperature 98.5 F Pulse Rate 74 Respiratory 20 18 Rate Blood Pressure 97/53 Blood Pressure [Left] O2 Sat by Pulse 97 95 Oximetry 08/01/17 08/01/17 04:39 08:02 Temperature 98.2 F 98.1 F Pulse Rate 71 81 Respiratory 18 18 Rate Blood Pressure 110/56 Blood Pressure 97/50 [Left] O2 Sat by Pulse 97 98 Oximetry - General Appearance General appearance: well-developed, well-nourished EENT: ATNC Respiratory: Present: Clear to Ascultation Cardiology: regular, S1S2 Gastrointestinal: normal, no tenderness, no distended Integumentary: no rash, warm and dry Neurologic: no focal deficit, alert and oriented x3 Musculoskeletal: other (no edema) Psychiatric: cooperative - Lab 07/30/17 12:15 07/30/17 12:15 Most recent lab results Calcium 8.6 mg/dL (8.4-10.2) 07/30/17 12:15
[2017-08-01] MEDS: PHOSLO PO SCH (09:17)
[2017-08-01] MEDS: COREG PO SCH (09:18)
[2017-08-01] MEDS: HumaLOG SUB-Q SCH (09:18)
[2017-08-01] MEDS: LANTUS SUB-Q SCH (09:19)
[2017-08-01] MEDS: PROCARDIA XL PO SCH (09:19)
[2017-08-01] MEDS: PROTONIX PO SCH (09:19)
--- NOTE | 2017-08-01 10:49 | Progress Note ---
Assessment and Plan 07/31/2017>Patient had transient chest pain during dialysis,improved with morphine,no recurrence.EKG's showed no acute changes,cardiac enzymes are elevated but not diagnostic of myocardial injury.Most likely related to underlying ESRD. Would continue risk factor modification and medical therapy.Will arrange for pharmacologic stress testing as OP. Patient says she has difficult with balance,will schedule for pharmacologic stress imaging. 08/01/2017>cardiac enzymes are elevated,most likely related to her ESRD, temporal f/u of enzymes and CK-MB are not suggesting acute injury. Plan: as recommended above,discussed with patient,she is aggreeable. - Patient Problems (1) Diabetes Current Visit: Yes Status: Acute (2) Diastolic CHF Current Visit: Yes Status: Acute Qualifiers: Heart failure chronicity: acute on chronic Qualified Code(s): I50.33 - Acute on chronic diastolic (congestive) heart failure (3) ESRD needing dialysis Current Visit: Yes Status: Acute (4) Elevated troponin I level Current Visit: Yes Status: Acute (5) HTN (hypertension) Current Visit: Yes Status: Chronic Qualifiers: Hypertension type: essential hypertension Qualified Code(s): I10 - Essential (primary) hypertension Subjective Date of service: 08/01/17 Interval history: denies any chest pain or SOB or palpitations. Objective Vital Signs Temp Pulse Resp BP BP Pulse Ox 08/01/17 08:02 98.1 F 81 18 97/50 98 08/01/17 04:39 98.2 F 71 18 110/56 97 08/01/17 00:12 98.5 F 74 18 97/53 95 07/31/17 22:00 97 07/31/17 21:55 20 07/31/17 21:47 90/53 07/31/17 21:46 90/53 07/31/17 21:09 90/53 07/31/17 19:04 98.2 F 83 18 76/40 99 07/31/17 16:00 98.7 F 85 16 165/86 07/31/17 15:30 96 H 163/94 07/31/17 15:15 96 H 129/72 07/31/17 15:00 91 H 140/86 07/31/17 14:45 86 159/108 07/31/17 14:30 85 179/94 07/31/17 14:15 83 185/100 07/31/17 14:00 84 174/93 07/31/17 13:45 75 142/107 07/31/17 13:30 82 189/100 07/31/17 13:15 76 206/105 07/31/17 13:00 76 196/109 07/31/17 12:45 75 202/107 07/31/17 12:30 99.0 F 75 17 202/107 07/31/17 11:56 98.4 F 79 18 197/86 96 - Physical Examination Neck: Positive: trachea midline Cardiac: Positive: Regular Rhythm Neuro: Positive: Cranial Nerve 2-12 Intact Abdomen: Positive: Unremarkable Extremities: Absent: edema (AV fistula right upper extremity.) - Labs and Meds Cardiac Enzymes 07/31/17 Range/Units 14:00 CK-MB (CK-2) 7.8 H (0.0-4.0) ng/mL
== END 2017-08-01 13:24 | disposition home or self-care (01) | DRG 291 ==
LOC: ED 09:43 → 4A 11:58
PROVIDERS: ADMIT Internal Medicine; ATTEND Internal Medicine
PROC: 5A1D70Z Performance of Urinary Filtration, Intermittent, Less than 6 Hours Per Day (ICD-10-PCS; principal; 2017-07-31)
DX: I13.2 Hypertensive heart and chronic kidney disease with heart failure and with stage 5 chronic kidney disease, or end stage renal disease (principal); N18.6 End stage renal disease; I50.33 Acute on chronic diastolic (congestive) heart failure; N25.81 Secondary hyperparathyroidism of renal origin; E11.22 Type 2 diabetes mellitus with diabetic chronic kidney disease; D63.1 Anemia in chronic kidney disease; R07.89 Other chest pain; E04.2 Nontoxic multinodular goiter; Z82.49 Family history of ischemic heart disease and other diseases of the circulatory system; Z83.3 Family history of diabetes mellitus; Z79.899 Other long term (current) drug therapy; Z86.73 Personal history of transient ischemic attack (TIA), and cerebral infarction without residual deficits
CPT/HCPCS: 36415; 71250; 80048; 80061; 82550; 82553; 82962; 84484; 85007; 85025; 93005; 93010; 94760; 96374; A9270-GY; J1815; J2270

== ENCOUNTER 2019-03-03 11:28 | Emergency (ER) | payer MEDICARE ==
[2019-03-03 12:49] LABS: Basophils # (Auto) 0.1 K/mm3 (0.0-0.1); Basophils % (Auto) 0.7 % (0.0-1.8); Eosinophils # (Auto) 0.1 K/mm3 (0.0-0.4); Eosinophils % (Auto) 1.2 % (0.0-4.3); Hematocrit 34.4 % (30.3-42.9); Hemoglobin 10.9 gm/dl (10.1-14.3); Lymphocytes # (Auto) 0.8 K/mm3 (1.2-5.4); Lymphocytes % (Auto) 11.8 % (13.4-35.0); Mean Corpuscular HGB Conc 32 % (30-34); Mean Corpuscular Volume 76 fl (79-97); Monocytes # (Auto) 0.5 K/mm3 (0.0-0.8); Monocytes % (Auto) 6.6 % (0.0-7.3); Platelet Count 188 K/mm3 (140-440); Red Blood Count 4.54 M/mm3 (3.65-5.03); Red Cell Distribution Width 15.1 % (13.2-15.2)
[2019-03-03 13:01] LABS: Calcium 9.3 mg/dL (8.4-10.2)
[2019-03-03] MEDS ORDERED: cloNIDine 0.2 MG TAB PO ONE ×2 (13:21→15:53)
[2019-03-03 13:27] LABS: Chol/HDL Ratio 3.97 %
--- NOTE | 2019-03-03 13:47 | XRay Report ---
CHEST 1 VIEW INDICATION: chest pain. COMPARISON: 07/29/2016 FINDINGS: Support devices: None. Heart: Borderline to mild cardiomegaly. Lungs/Pleura: No acute air space or interstitial disease. Additional findings: None. IMPRESSION: Borderline to mild cardiomegaly. Lungs clear. Signer Name: Jimbo Mathew Jr, MD Signed: 03/03/2019 1:42 PM Workstation Name: [id number]
--- NOTE | 2019-03-03 14:43 | Emergency Department Report ---
<LEO TO III - Last Filed: 03/03/19 18:42> ED Chest Pain HPI - General Chief Complaint: Chest Pain Stated Complaint: CHEST PAIN Time Seen by Provider: 03/03/19 12:06 - Related Data Home Medications Medication Instructions Recorded Confirmed Last Taken Clonidine HCl [Catapres] 0.3 mg PO BID 11/28/14 03/03/19 03/03/19 carvediloL [Coreg] 25 mg PO BID 02/13/15 03/03/19 07/30/17 Insulin Detemir (Nf) [Levemir 20 unit SQ DAILY 07/29/16 03/03/19 03/02/19 Flextouch (Nf)] Omeprazole Magnesium [PriLOSEC Otc] 20 mg PO QDAY 07/29/16 03/03/19 07/30/17 Calcium Acetate [Phoslo] 2,001 mg PO QAC 07/30/17 03/03/19 07/30/17 Cinacalcet HCl [Sensipar] 30 mg PO AC 03/03/19 03/03/19 Unknown NIFEdipine XL [Procardia Xl] 60 mg PO DAILY 03/03/19 03/03/19 Unknown NovoLOG 100 UNITS/ML VIAL See Protocol SC AC PRN 03/03/19 Unknown Allergies Allergy/AdvReac Type Severity Reaction Status Date / Time lisinopril Allergy Swelling Verified 03/03/19 11:44 heparin AdvReac EYE Verified 03/03/19 11:44 FOGGING/ EYE BLEEDING ED Past Medical Hx - Medications Home Medications: Home Medications Medication Instructions Recorded Confirmed Last Taken Type Clonidine HCl [Catapres] 0.3 mg PO BID 11/28/14 03/03/19 03/03/19 History carvediloL [Coreg] 25 mg PO BID 02/13/15 03/03/19 07/30/17 History Insulin Detemir (Nf) [Levemir 20 unit SQ DAILY 07/29/16 03/03/19 03/02/19 History Flextouch (Nf)] Omeprazole Magnesium [PriLOSEC Otc] 20 mg PO QDAY 07/29/16 03/03/19 07/30/17 History Calcium Acetate [Phoslo] 2,001 mg PO QAC 07/30/17 03/03/19 07/30/17 History Cinacalcet HCl [Sensipar] 30 mg PO AC 03/03/19 03/03/19 Unknown History NIFEdipine XL [Procardia Xl] 60 mg PO DAILY 03/03/19 03/03/19 Unknown History NovoLOG 100 UNITS/ML VIAL See Protocol SC AC PRN 03/03/19 Unknown History ED Course - Reevaluation(s) Reevaluation #1: Patient was signed out to me from previous Dr. Nova. Patient's blood pressure was difficult to manage however patient was given 10 mg of IV hydralazine and her blood pressure improved. Patient was signed out for her pending troponin. Patient's troponin went up. I discussed all results patient. Discussed plan of care and admission of patient. Patient does not want to be admitted. Patient refuses admission. Patient signed AMA form. I discussed risk with patient. Patient voiced understanding of risks of leaving hospital AMA. Patient given re turn to ER instructions. Patient given discharge instructions. Patient was understanding of all instructions. 03/03/19 18:43 ED Medical Decision Making - Lab Data Result diagrams: 03/03/19 12:27 03/03/19 12:27 ED Disposition Clinical Impression: Acute chest pain, Hypertension, Hypertension, malignant, Hypertensive urgency, ESRD needing dialysis, Elevated troponin I level Disposition: DC-07 LEFT AGAINST MED ADVICE Is pt being admited?: No Does the pt Need Aspirin: No Condition: Undetermined Instructions: Chest Pain (ED), Chronic Kidney Disease (ED), Chronic Hypertension (ED), Hypertensive Crisis (ED), Hypertension (ED) Additional Instructions: Patient to follow up with primary care in 2-3 days. Patient to return to the c ondition worsens. Patient to rest. Patient to increase water. Patient to continue with the bootmaker. Patient to continue dialysis schedule. Patient to return to the ER if condition worsens or changes. Patient to continue all medications. Referrals: [facility] [Provider Group] - 2-3 Days Forms: AMA Form, Work/School Release Form(ED) Time of Disposition: 18:45 <VERA NOVA - Last Filed: 03/04/19 22:52> ED Chest Pain HPI - General Source: EMS Mode of arrival: Stretcher Limitations: No Limitations - History of Present Illness Initial Comments: 43-year-old female with history of ESRD presents to ED with brief episode of chest pain. Patient reports after completing dialysis today, she felt a gurgling sensation in her fistula as the line was flushed and reports having an episode of burning chest pain that lasted for approximately 10 minutes. Patient states pain is currently resolved and she is feeling much better at this time. She denies any shortness of breath. Patient reports normal stress test several years ago. Severity scale (0 -10): 0 Heart Score - HEART Score History: Slightly suspicious EKG: Normal Age: < 45 Risk factors: 1-2 risk factors Troponin: 1-3x normal limit HEART Score: 2 ED Review of Systems ROS: Stated complaint: CHEST PAIN Other details as noted in HPI ED Past Medical Hx - Past Medical History Previous Medical History?: Yes Hx Hypertension: Yes Hx CVA: Yes (TIA) Hx Heart Attack/AMI: No Hx Congestive Heart Failure: Yes ([facility] DIASTOLIC HEART FAILURE) Hx Diabetes: Yes (IDDM 2014) Hx Deep Vein Thrombosis: No Hx Pulmonary Embolism: No Hx GERD: No Hx Liver Disease: No Hx Renal Disease: Yes (MWF dialysis) Hx Sickle Cell Disease: No Hx Arthritis: No Hx Headaches / Migraines: No Hx Seizures: No Hx Kidney Stones: No Hx Psychiatric Treatment: No Hx Asthma: No Hx COPD: No Hx Tuberculosis: No Hx Dementia: No Hx HIV: No - Surgical History Past Surgical History?: Yes Hx Coronary Stent: No Hx Open Heart Surgery: No Hx Pacemaker: No Hx Internal Defibrillator: No Hx Cholecystectomy: No Hx Appendectomy: No Hx Breast Surgery: No Additional Surgical History: Left subclavian hemodialysis access. Fistula placement right arm - Social History Smoking Status: Never Smoker Substance Use Type: None ED Physical Exam - General Limitations: No Limitations ED Course Vital Signs 03/03/19 03/03/19 03/03/19 11:40 11:42 11:45 Temperature 98 F Pulse Rate 67 68 68 Respiratory 11 L 13 13 Rate Blood Pressure 222/95 Blood Pressure 219/93 [Left] O2 Sat by Pulse 96 100 100 Oximetry 03/03/19 03/03/19 03/03/19 12:00 12:15 12:31 Temperature Pulse Rate 67 68 67 Respiratory 16 12 15 Rate Blood Pressure 233/94 238/94 238/94 Blood Pressure [Left] O2 Sat by Pulse 99 100 99 Oximetry 03/03/19 03/03/19 03/03/19 12:45 13:01 13:15 Temperature Pulse Rate 66 65 Respiratory 11 L 11 L 13 Rate Blood Pressure 238/94 238/94 238/94 Blood Pressure [Left] O2 Sat by Pulse 100 100 100 Oximetry 03/03/19 03/03/19 03/03/19 13:31 13:45 13:49 Temperature Pulse Rate 67 66 66 Respiratory 12 15 Rate Blood Pressure 256/102 230/95 230/95 Blood Pressure [Left] O2 Sat by Pulse 100 100 Oximetry 03/03/19 03/03/19 03/03/19 14:00 14:15 14:31 Temperature Pulse Rate 65 63 65 Respiratory 10 L 13 17 Rate Blood Pressure 239/103 259/98 225/77 Blood Pressure [Left] O2 Sat by Pulse 100 100 99 Oximetry 03/03/19 03/03/19 03/03/19 14:45 15:01 15:15 Temperature Pulse Rate 65 63 63 Respiratory 12 15 14 Rate Blood Pressure 233/83 226/75 226/75 Blood Pressure [Left] O2 Sat by Pulse 100 100 100 Oximetry 03/03/19 03/03/19 03/03/19 15:31 15:45 16:01 Temperature Pulse Rate 64 63 64 Respiratory 17 15 19 Rate Blood Pressure 217/81 233/77 225/78 Blood Pressure [Left] O2 Sat by Pulse 100 100 100 Oximetry 03/03/19 03/03/19 03/03/19 16:10 16:15 16:31 Temperature Pulse Rate 62 63 63 Respiratory 9 L 15 Rate Blood Pressure 225/78 229/78 232/86 Blood Pressure [Left] O2 Sat by Pulse 100 100 Oximetry 03/03/19 03/03/19 03/03/19 16:45 17:01 17:03 Temperature Pulse Rate 62 65 63 Respiratory 14 11 L Rate Blood Pressure 255/102 257/117 257/117 Blood Pressure [Left] O2 Sat by Pulse 100 100 Oximetry 03/03/19 03/03/19 03/03/19 17:15 17:30 17:45 Temperature Pulse Rate 65 69 70 Respiratory 12 13 15 Rate Blood Pressure 257/117 179/72 158/63 Blood Pressure [Left] O2 Sat by Pulse 100 100 100 Oximetry 03/03/19 03/03/19 03/03/19 18:00 18:15 18:30 Temperature Pulse Rate 73 72 69 Respiratory 16 18 20 Rate Blood Pressure 150/64 155/62 145/58 Blood Pressure [Left] O2 Sat by Pulse 100 100 99 Oximetry 03/03/19 03/03/19 03/03/19 18:45 19:00 19:15 Temperature Pulse Rate 69 73 73 Respiratory 18 18 17 Rate Blood Pressure 144/64 134/62 158/64 Blood Pressure [Left] O2 Sat by Pulse 100 99 100 Oximetry - Consultations Consultation #1: 03/03/19 14:43 Pt followed by [facility] during previous admissions. Spoke w/ Anai Stern NP. Troponin elevation likely due to renal disease. Check repeat troponin, ok for discharge if not elevated. JOHN score - John Score Age > 65: (0) No Aspirin use within the Past 7 Days: (0) No 3 or more CAD Risk Factors: (1) Yes 2 or more Angina events in past 24 hrs: (1) Yes Known CAD with more than 50% Stenosis: (0) No Elevated Cardiac Markers: (1) Yes ST Deviation Greater than 0.5mm: (0) No JOHN Score: 3 ED Medical Decision Making - Lab Data Result diagrams: 03/03/19 12:27 03/03/19 12:27 - EKG Data -: EKG Interpreted by Nh EKG shows normal: sinus rhythm, axis, intervals, QRS complexes, ST-T waves - EKG Data When compared to previous EKG there are: no significant change (compared to 2018) Interpretation: LVH, other (old inferior infarct, poss old anterior infarct as well) - Radiology Data Radiology results: report reviewed, image reviewed Critical care attestation.: If time is entered above; I have spent that time in minutes in the direct care of this critically ill patient, excluding procedure time.
[2019-03-03] MEDS ORDERED: hydrALAZINE 20 MG/1 ML INJ IV ONE (15:14)
[2019-03-03 19:24] VITALS: BP 158/64
== END 2019-03-03 19:29 | disposition left against medical advice (07) ==
LOC: ED 11:28
DX: R07.9 Chest pain, unspecified (principal); I16.0 Hypertensive urgency; E11.22 Type 2 diabetes mellitus with diabetic chronic kidney disease; I13.2 Hypertensive heart and chronic kidney disease with heart failure and with stage 5 chronic kidney disease, or end stage renal disease; I50.9 Heart failure, unspecified; N18.6 End stage renal disease; Z99.2 Dependence on renal dialysis
CPT/HCPCS: 36415; 71045; 80048; 80061; 84484; 85025; 93005; 93010; 96374; 99284; J0360

== ENCOUNTER 2020-09-02 10:44 | Emergency (ER) | payer MEDICARE ==
[2020-09-02 11:12] VITALS: BP 154/79
[2020-09-02] MEDS ORDERED: ASPIRIN 325 MG TAB PO ONE (11:13)
[2020-09-02 11:43] LABS: Basophils # (Auto) 0.1 K/mm3 (0.0-0.1); Basophils % (Auto) 0.8 % (0.0-1.8); Eosinophils # (Auto) 0.2 K/mm3 (0.0-0.4); Eosinophils % (Auto) 2.8 % (0.0-4.3); Hemoglobin 11.4 gm/dl (10.1-14.3); Lymphocytes % (Auto) 14.1 % (13.4-35.0); Mean Corpuscular HGB Conc 32 % (30-34); Mean Corpuscular Volume 77 fl (79-97); Monocytes # (Auto) 0.3 K/mm3 (0.0-0.8); Platelet Count 185 K/mm3 (140-440); Red Blood Count 4.67 M/mm3 (3.65-5.03); Red Cell Distribution Width 14.7 % (13.2-15.2)
--- NOTE | 2020-09-02 11:47 | XRay Report ---
CHEST PA AND LATERAL VIEWS INDICATION: chest pain. COMPARISON: 07/29/2016 FINDINGS: Support devices: None. Heart: Within normal limits. Lungs/Pleura: No acute pulmonary or pleural findings. IMPRESSION: 1. No acute findings. Signer Name: Sukumar Velarde MD Signed: 09/02/2020 11:42 AM Workstation Name: [id number]
[2020-09-02 12:02] LABS: Albumin 4.3 g/dL (3.9-5)
[2020-09-02 12:52] LABS: Chol/HDL Ratio 3.14 %
--- NOTE | 2020-09-03 10:18 | Electrocardiograph Report ---
[facility] Test Date: 2020-09-02 Test Time: 10:53:30 Pat Name: MADY OCONNELL Department: Room: Gender: F [employer] Leader: : 1975 Requested By: ED DOC Order Number: [id number] Reading MD: Meghan Villareal Measurements Intervals [place] Rate: 70 P: 15 CO: 176 QRS: -12 QRSD: 97 T: 135 QT: 445 QTc: 480 Interpretive Statements Sinus rhythm Probable left atrial enlargement LVH WITH SECONDARY REPOLARIZATION ABNORMALITY No previous ECG available for comparison Electronically Signed On 09-03-2020 10:18:10 EDT by Meghan Villareal
--- NOTE | 2020-10-03 08:37 | ED Elopement Review ---
ED Pt Elopement review - Results review Lab results: I did not evaluate this patient. The patient eloped from the ER. Laboratory Tests 09/02/20 09/02/20 11:17 11:17 WBC 6.7 RBC 4.67 Hgb 11.4 Hct 36.0 MCV 77 L MCH 24 L MCHC 32 RDW 14.7 Plt Count 185 Lymph % (Auto) 14.1 Harlan % (Auto) 4.0 Eos % (Auto) 2.8 Baso % (Auto) 0.8 Lymph # (Auto) 1.0 L Harlan # (Auto) 0.3 Eos # (Auto) 0.2 Baso # (Auto) 0.1 Seg Neutrophils % 78.3 H Seg Neutrophils # 5.3 Sodium 134 L Potassium 4.6 Chloride 97.0 L Carbon Dioxide 28 Anion Gap 14 BUN 29 H Creatinine 4.1 H Estimated GFR 14 BUN/Creatinine Ratio 7 Glucose 117 H Calcium 9.0 Total Bilirubin 0.30 AST 15 ALT 10 Alkaline Phosphatase 70 Troponin T 0.202 H* Total Protein 7.9 Albumin 4.3 Albumin/Globulin Ratio 1.2 Triglycerides 71 Cholesterol 157 LDL Cholesterol Direct 98 HDL Cholesterol 50 Cholesterol/HDL Ratio 3.14
== END 2020-09-02 14:11 | disposition left against medical advice (07) ==
LOC: ED 10:44
DX: R07.9 Chest pain, unspecified (principal); Z53.21 Procedure and treatment not carried out due to patient leaving prior to being seen by health care provider
CPT/HCPCS: 36415; 71046; 80053; 80061; 84484; 85025; 93005